=== PATIENT | female | born 1980 | race Two or more races ===

== ENCOUNTER 2018-03-04 16:49 | Emergency (ER) | payer BC ==
[~2018-03-04] VITALS: Ht 154.9 cm; Wt 50.8 kg
[2018-03-04 16:55] VITALS: BP 112/65
--- NOTE | 2018-03-04 18:26 | Emergency Room Report ---
History of Present Illness General Chief Complaint: Upper Extremity Injury Source: Patient Present Illness HPI 37-year-old female presents to the emergency department complaining of 8 out of 10 in severity localized left wrist pain and swelling upon awakening this morning. Patient reports she sustained sprain injury approximately 4 weeks while doing pushups at the gym. Patient denies trauma or fall otherwise she states that her pain did not develop until after her workout. Patient states that she has been treating her symptoms with an Rock wrap and has pretty much improved. Patient states that last night she did not sleep with the Rock wrap, she normally does and she woke with exacerbation of her pain. Patient states that she was not evaluated for the initial injury and that she self diagnosed a sprain. She denies bruises, erythema, and open wounds, fevers or chills.Denies numbness/tingling, gross loss of sensation or gross motor movements of the extremities. Allergies: Coded Allergies: PENICILLINS (Verified Allergy, Unknown, 03/04/18) Patient History Past Medical History: see triage record Past Surgical History: none Pertinent Family History: none Reviewed Nursing Documentation: PMH: Agreed; PSxH: Agreed Nursing Documentation-PMH Past Medical History: No History, Except For Hx Hypertension: No - GENITAL HERPES Review of Systems All Other Systems: negative except mentioned in HPI Physical Exam Vital Signs Date Time Temp Pulse Resp B/P (MAP) Pulse Ox O2 Delivery O2 Flow Rate FiO2 03/04/18 16:52 98.6 88 20 112/65 96 Room Air 98.6 Sp02 EP Interpretation: reviewed, normal General Appearance: no apparent distress, alert, GCS 15, non-toxic Head: normocephalic, atraumatic Eyes: bilateral eye normal inspection ENT: hearing grossly normal, normal voice Neck: full range of motion Respiratory: lungs clear, normal breath sounds, speaking full sentences Cardiovascular #1: regular rate, rhythm, normal capillary refill Cardiovascular #2: 2+ radial (R), 2+ radial (L) Musculoskeletal: back normal, gait/station normal, normal range of motion, tender - Localized TTP to the dorsal portion of the left wrist, most prominently at the distal radius, no erythema, no bruises, FROM with pain. NVI, mild dorsal swelling noted. no snuff box ttp. Neurologic: alert, oriented x3, responsive, motor strength/tone normal, sensory intact, normal gait, speech normal, grossly normal Psychiatric: judgement/insight normal Skin: normal color, no rash, warm/dry, well hydrated Medical Decision Making PA Attestation Dr. Alfred is my supervising Physician whom patient management has been discussed with. Diagnostic Impression: Primary Impression: Tendonitis of wrist, left ER Course 37-year-old female presents to the emergency department complaining of 8 out of 10 in severity localized left wrist pain and swelling upon awakening this morning. Patient reports she sustained sprain injury approximately 4 weeks while doing pushups at the gym. Patient denies trauma or fall otherwise she states that her pain did not develop until after her workout. Patient states that she has been treating her symptoms with an Rock wrap and has pretty much improved. Patient states that last night she did not sleep with the Rock wrap, she normally does and she woke with exacerbation of her pain. Patient states that she was not evaluated for the initial injury and that she self diagnosed a sprain. She denies bruises, erythema, and open wounds, fevers or chills.Denies numbness/tingling, gross loss of sensation or gross motor movements of the extremities. Ddx considered but are not limited to Fracture, dislocation, contusion, Sprain/ Strain/Spasm just to name a few. Vital signs: are WNL, pt. is afebrile H&PE are most consistent with musculoskeletal injury will perform imaging to r/ o fractures/dislocations. ORDERS: - X-ray Left wrist 2 - negative for fx, Dislocation, or significant soft tissue injury, per preliminary read in ED, and signed by RUMA Posadas, my supervising physician has reviewed, and agrees with my interpretation. ED INTERVENTIONS: - Tylenol PO -Left wrist Splint applied by renal dialysis technician. Pt. remains neurovascularly intact. DISCHARGE: At this time pt. is stable for d/c to home. Will provide printed patient care instructions, and any necessary prescriptions. Care plan and follow up instructions have been discussed with the patient prior to discharge. Other X-Ray Diagnostic Results Other X-Ray Diagnostic Results : X-Ray ordered: Left Wrist # of Views/Limited Vs Complete: 2 View Indication: Pain EP Interpretation: Yes RUMA Xray: Interpretation reviewed, by supervising MD, and agrees with findings. Interpretation: no dislocation, no soft tissue swelling, no fractures Impression: No acute disease Electronically Signed by: Gertrudis Posadas PA-C Last Vital Signs Date Time Temp Pulse Resp B/P (MAP) Pulse Ox O2 Delivery O2 Flow Rate FiO2 03/04/18 17:54 98.6 03/04/18 16:55 88 20 112/65 96 Room Air Disposition: HOME, SELF-CARE Condition: Stable Scripts Calcium Carbonate (CALCI-CHEW) 500 Mg Tab.chew 500 MG PO DAILY, #30 TAB Prov: Gertrudis Posadas 03/04/18 Naproxen Sodium (Naproxen Sodium ER) 375 Mg Tbmp.24hr 375 MG PO DAILY for 7 Days, #7 TAB Prov: Gertrudis Posadas 03/04/18 Referrals: NOT CHOSEN IPA/MD,REFERRING (PCP) Patient Instructions: Wrist Pain, [id number] Additional Instructions: Take medications as directed. Follow up with a Primary Care Provider in 3-5 days, even if your symptoms have resolved. --Please review list of primary care clinics, if you do not already have a primary care provider Return sooner to ED if new symptoms occur, or current symptoms become worse. - Please note that this Emergency Department Report was dictated using [employer] technology software, occasionally this can lead to erroneous entry secondary to interpretation by the dictation equipment. Gertrudis Posadas March 04, 2018 18:26
[2018-03-04] MEDS ORDERED: CALCI-CHEW500 MG PO (18:29)
[2018-03-04] MEDS ORDERED: NAPROXEN SODIU375 M1 PO (18:29)
[2018-03-04 18:36] VITALS: BP 112/65
--- NOTE | 2018-03-05 10:53 | Diagnostic Imaging Report ---
Indication: Pain left wrist pain Findings: 3 views of the left wrist were obtained. No acute fractures, malalignment, erosions or periostitis are identified. Soft tissues are unremarkable. Impression: No acute findings.
== END 2018-03-04 18:37 | disposition home or self-care (01) ==
LOC: EMR 17:05
DX: M77.8 Other enthesopathies, not elsewhere classified (principal); I10 Essential (primary) hypertension; Z88.0 Allergy status to penicillin
CPT/HCPCS: 99284